=== PATIENT | male | born 1995 | race African-American/Black ===

== ENCOUNTER 2018-11-12 14:20 | Emergency (ER) | payer SELFPAY ==
[2018-11-12 14:24] VITALS: BP 117/66
[2018-11-12] MEDS ORDERED: LIDOCAINE 1% INJ-PF (10 MG/ML) 30 ML SDV INJ ONE (14:50)
[2018-11-12] MEDS ORDERED: CEFTRIAXONE INJ 250 MG VIAL IM ONE (14:50)
[2018-11-12] MEDS ORDERED: AZITHROMYCIN 250 MG TABLET PO ONE (14:50)
--- NOTE | 2018-11-12 14:54 | ER Document Report ---
HPI - HPI Time Seen by Provider: 11/12/18 14:47 Pain Level: 3 Notes: Patient is a 23-year-old male with no significant past medical history who presents complaining of testing positive for chlamydia and needing treatment. Patient states that he was told by the doctor's office that he had chlamydia. Patient has been sexually active. He is eating and drinking without difficulty. He is urinating normally and having normal bowel movements per he has no other concerns or complaints. He has not noticed any discharge. Denies any headache, fever, URI, sore throat, chest pain, palpitations, syncope, cough, shortness of breath, wheeze, dyspnea, abdominal pain, nausea/vomiting/diarrhea, urinary retention, dysuria, hematuria, back pain, or rash. - ROS Systems Reviewed and Negative: Yes All other systems reviewed and negative Past Medical History - Social History Smoking Status: Never Smoker Frequency of alcohol use: None Drug Abuse: None Family History: Reviewed & Not Pertinent Patient has suicidal ideation: No Patient has homicidal ideation: No Renal/ Medical History: Denies: Hx Peritoneal Dialysis Vertical Provider Document - CONSTITUTIONAL Agree With Documented VS: Yes Notes: PHYSICAL EXAMINATION: GENERAL: Well-appearing, well-nourished and in no acute distress. LUNGS: Breath sounds clear to auscultation bilaterally and equal. No wheezes rales or rhonchi. HEART: Regular rate and rhythm without murmurs, rubs, gallops. ABDOMEN: Soft, nontender, nondistended abdomen. No guarding, no rebound. N ormal bowel sounds present. No CVA tenderness bilaterally. : + circum. No urethral discharge. No obvious lymphadenopathy or hernia. No erythema, swelling, or lesions noted. Nontender to palpation of the penis, scrotum, and testicles. NEUROLOGICAL: Normal speech, normal gait. PSYCH: Normal mood, normal affect. SKIN: Warm, Dry, normal turgor, no rashes or lesions noted. - INFECTION CONTROL TRAVEL OUTSIDE OF THE [place] IN LAST 30 DAYS: No Course - Re-evaluation Re-evalutation: 11/12/18 14:52 Patient is an afebrile, well-hydrated, 23-year-old male who presents for treatment for probable STD, chlamydia. Patient was told by Dr. Benton that he has not been needs treated. Vitals are acceptable without significant tachycardia, tachypnea, or hypoxia. PE is otherwise unremarkable. His abdomen is soft and nontender. Chlamydia gonorrhea test are pending. Patient was given Zithromax and Rocephin. No further work-up warranted. Patient is nontoxic appearing and is able to tolerate p.o. without difficulty. Low suspicion/risk for acute appendicitis, bowel obstruction, acute cholecystitis, perforated diverticulitis, incarcerated hernia, pancreatitis, perforated ulcer, peritonitis, sepsis, testicular torsion, or other systemic emergent condition at this time. Patient is aware that his condition can change from initial presentation and he needs to monitor symptoms closely and seek medical attention if any acute changes. Conservative measures otherwise for symptoms. Recheck with PCM/health department this week. Return to the ED with any worsening/concerning symptoms otherwise as reviewed in discharge. Patient is in agreement. - Vital Signs Vital signs: Temp Pulse Resp BP Pulse Ox 99.0 F 84 14 117/66 97 11/12/18 14:23 11/12/18 14:23 11/12/18 14:23 11/12/18 14:23 11/12/18 14:23 Discharge - Discharge Clinical Impression: Possible exposure to STD Condition: Stable Disposition: HOME, SELF-CARE Additional Instructions: Maintain fluid intake Proper hygienic technique Keep the skin clean Safe sexual practices with condoms everytime Tylenol/ibuprofen as needed Check in with the health department this week for further testing if warranted Your chlamydia/gonorrhea tests are pending and you will be notified if positive results; you may call in 1 day for the results as well F/u with your PCM in 3-5 days for a recheck Return to the ED with any development of GRANDE/fever, trouble with vision, eye redness, worsening pain, urethral discharge, urinary retention, blood in the urine, flank pain, abdominal pain, n/v, Chest Pain, shortness of breath, joint pains, trouble breathing, or any other worsening/concerning symptoms as needed otherwise. [facility] - Follow up in 3-5 days
[2018-11-12 16:27] LABS: CHLAM PCR DETECTED (NOT DETECT)
== END 2018-11-12 15:23 | disposition home or self-care (01) ==
LOC: ER 14:20
DX: Z20.2 Contact with and (suspected) exposure to infections with a predominantly sexual mode of transmission (principal)
CPT/HCPCS: 99283; 96372; 87491; 87591; J3490; J0696